=== PATIENT | female | born 1960 | race Caucasian/White ===

== ENCOUNTER 2017-04-23 21:37 | Emergency (ER) | payer SELFPAY ==
[2017-04-23] MEDS ORDERED: diazePAM INJ 10 MG/2 ML SYG IV ONE ×2 (22:10→22:59)
[2017-04-23] MEDS ORDERED: SODIUM CHLORIDE 0.9% 1000ML 1,000 ML IVS ONE (22:10)
--- NOTE | 2017-04-23 23:32 | ED.PDOC ---
History of Present Illness - General Chief Complaint: ENT Problem Stated Complaint: feels like she cant swallow Time Seen by Provider: 04/23/17 22:10 Source: patient, RN notes reviewed, Vital Signs reviewed Additional Information: Pt went to [employer] event today and feels some difficulty swallowing and belching after eating barbecue today. She reports it usually clears up but it hasn't yet and it has her worried. She has gagged herself a few times to see if this will help. She states that her previous providers have told her that stress can play a role in her symptoms. She is currently protecting her airway, in no signs of distress, and complaining of globus sensation in her throat with difficulty belching. - History of Present Illness Timing/Duration: gradual Severity: mild EENT Location: throat Prearrival Treatment: no prearrival treatment Improving Factors: nothing Worsening Factors: other - swallowing Associated Symptoms: other - gagging sensation Allergies/Adverse Reactions: Allergies NO KNOWN ALLERGY Allergy (Verified 04/23/17 22:14) Review of Systems - Review of Systems Constitutional: States: no symptoms reported EENTM: States: see HPI Respiratory: States: no symptoms reported Cardiology: States: no symptoms reported Gastrointestinal/Abdominal: States: see HPI Genitourinary: States: no symptoms reported Musculoskeletal: States: no symptoms reported Skin: States: no symptoms reported Neurological: States: anxiety Endocrine: States: no symptoms reported Hematologic/Lymphatic: States: no symptoms reported Past Medical History (General) - Patient Medical History Hx Seizures: No Hx Stroke: No Hx Dementia: No Hx Asthma: No Hx of COPD: No Hx Cardiac Disorders: No Hx Congestive Heart Failure: No Hx Pacemaker: No Hx Hypertension: Yes Hx Thyroid Disease: No Hx Diabetes: No Hx Gastroesophageal Reflux: No Hx Renal Disease: No Hx of HIV: No Hx MRSA: No Surgical History: Hysterectomy - Social History Hx Tobacco Use: No Hx Alcohol Use: No Hx Substance Use: No Hx Substance Use Treatment: No Hx Depression: No Family Medical History - Family History Mother Family History: Unknown Physical Exam - Physical Exam General Appearance: Alert, Anxious, Well Developed, Well Groomed, Well Hydrated , Well Nourished Eye Exam: bilateral normal Ear Exam: bilateral ear: auricle normal Nasal Exam: normal inspection Throat Exam: normal mouth inspection - , no enlarged tongue or soft tissue, pharynx normal Neck: non-tender, full range of motion, supple, normal inspection Cardiovascular/Respiratory: regular rate, rhythm, no M/R/G, normal peripheral pulses, normal breath sounds, no respiratory distress Abdominal Exam: non-tender 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 After about 15 minutes she said her symptoms returned. 04/24/17 02:14 Pt given 2nd dose of Valium 5 mg IV and then GI Cocktail. Pt states her symptoms improved significantly after GI Cocktail. Pt stable for discharge home with strict return precautions. Pt states some throat discmofort after taking her antihypertensive over the past few weeks. Pt advised to stop antihypertensive for now and follow-up with primary care provider when she gets back home in a week to discuss possibly switching her antihypertensive regimen. - Results/Orders Results/Orders: 04/23/17 22:10 IV Care:Saline Lock per [facility] QSHIFT Laboratory Results - last 24 hr 04/24/17 00:35 Sodium 143 Potassium 3.7 Chloride 109 Carbon Dioxide 26 Anion Gap 11.7 L BUN 14 Creatinine 0.82 BUN/Creatinine Ratio 17.1 Random Glucose 136 H Serum Osmolality 287.5 Calcium 9.2 Total Bilirubin 0.6 AST 21 ALT 23 Alkaline Phosphatase 76 Creatine Kinase 161 H CK-MB (CK-2) 3.8 CK-MB (CK-2) % 2.36 Troponin I 0.02 Serum Total Protein 7.8 Albumin 4.5 Globulin 3.3 Albumin/Globulin Ratio 1.4 Lipase 24 04/23/17 04/23/17 04/23/17 21:55 22:03 23:00 Temperature 98.4 F Pulse Rate [ 90 88 monitor] Respiratory 20 20 20 Rate Blood Pressure 181/101 171/81 [Right Arm] O2 Sat by Pulse 100 Oximetry 04/23/17 04/24/17 04/24/17 23:45 00:53 01:27 Temperature 98.1 F Pulse Rate [ 71 79 73 monitor] Respiratory 18 18 18 Rate Blood Pressure 152/88 154/82 147/87 [Right Arm] O2 Sat by Pulse 98 99 98 Oximetry CXR Report: Impression: 1. No acute abnormalities in the chest. Departure - Departure Clinical Impression: Globus sensation Time of Disposition: :22 Disposition: Discharge to Home or Self Care Condition: Fair Departure Forms: ED Discharge - Pt. Copy, Patient Portal Self Enrollment Instructions: DI for Esophageal Dysphagia Additional Instructions: Ok to stop blood pressure medicine for now until you can potentially get on a regiment without an ISMAEL inhibitor. Ok to take over the counter Maalox before meals and at night to help with sensation in esophagus/stomach. Return to ER if condition worsens.
--- NOTE | 2017-04-23 23:41 | RAD ---
Procedure: XR CHEST 2 VIEWS Exam Date: 04/23/2017 Ordering Provider: Darrell Viera Clinical Indication: difficulty swallowing/belching Comparison: None Findings: Cardiac silhouette: Borderline enlarged Pulmonary vasculature : Normal Mediastinal contour: Normal Aortic contour: Normal Focal lung consolidation: None Pleural effusion: None Pneumothorax: None Acute bony or soft tissue abnormality: None Impression: 1. No acute abnormalities in the chest. Electronically signed by: Vinh Ramires MD 04/23/2017 11:41 PM CDT
[2017-04-24] MEDS ORDERED: LIDOCAINE VIS-MYLANTA 30 ML UD PO ONE (00:22)
[2017-04-24 01:29] VITALS: BP 147/87; TEMP 98.1; O2SAT 98
== END 2017-04-24 01:30 | disposition home or self-care (01) ==
LOC: ER 21:37
DX: F45.8 Other somatoform disorders (principal); I10 Essential (primary) hypertension
CPT/HCPCS: 36415; 71020; 80053; 82550; 82553; 83690; 84484; J3360; J7030